=== PATIENT | female | born 1965 | race Caucasian/White ===

== ENCOUNTER 2018-12-01 14:12 | Emergency (ER) | payer SELFPAY ==
[~2018-12-01 14:12] MED LIST: ISOVUE-370 76%-LOCM 1 ML ONE
[2018-12-01 14:44] LABS: Bilirubin Negative (Negative); Blood, Urine Negative (Negative); Clarity CLEAR (Clear); Glucose, Urine (Dipstick) Negative (Negative); Leukocyte Small (Negative); Nitrite Negative (Negative); Protein, Urine (Dipstick) Negative (Neg-Trace); Urobilinogen 0.2 mg/dL (0.2-1.0); pH, Urine 6.5 (5.0-9.0)
[2018-12-01 14:46] LABS: Bacteria/HPF None Seen HPF (None Seen); Hyaline Casts/LPF 0-3 HYALINE CAST LPF (0-3 Hyaline); RBC/HPF 0-3 HPF (0-3); Squamous Epithelial 0-3 HPF (0-3)
[2018-12-01 14:47] LABS: Specific Gravity, Urine 1.004 (1.002-1.036)
[2018-12-01 14:48] LABS: #Basophils 0.1 thou/uL (0.0-0.2); #Lymphocytes 1.7 thou/uL (1.20-3.40); #Monocytes 0.3 thou/uL (0.11-0.59); #Neutrophils 3.1 thou/uL (1.40-6.50); %Eosinophils 0.6 % (0.0-10.0); %Lymphocytes 32.3 % (21.0-51.0); %Monocytes 5.7 % (0.0-10.0); %Neutrophils 60.4 % (42.0-75.0); Hemoglobin 14.3 g/dL (12.0-16.0); Mean Corpuscular HGB CONC 34.4 g/dL (32.0-36.0); Mean Corpuscular Hemoglobin 31.8 pg (27.0-31.0); Mean Corpuscular Volume 92.6 fL (78.0-98.0); Mean Platelet Volume 6.3 fL (7.4-10.4); Platelet Count 263 thou/uL (130-400); RBC Distribution Width 11.4 % (11.5-14.5); White Blood Cell (WBC) Count 5.1 thou/uL (4.8-10.8)
[2018-12-01] MEDS ORDERED: Morphine 4 MG/ML VIAL ONE (15:13)
[2018-12-01 15:19] LABS: ALT (SGPT) 15 U/L (8-55); AST (SGOT) 19 U/L (5-34); Albumin 4.1 g/dL (3.5-5.0); Alkaline Phosphatase 83 U/L (40-150); Anion Gap 16 mmol/L (10-20); BUN (Urea Nitrogen) 9 mg/dL (9.8-20.1); Bilirubin, Total 0.7 mg/dL (0.2-1.2); Calc. Creatinine Clearance 0 mL/min (70-130); Carbon Dioxide 24 mmol/L (22-29); Chloride 104 mmol/L (98-107); Estimated GFR-MDRD 82; Globulin 3.1 g/dL (2.4-3.5); Glucose 96 mg/dL (70-105); Lipase 24 U/L (8-78); Potassium 3.8 mmol/L (3.5-5.1); Protein, Total 7.2 g/dL (6.0-8.3); Sodium 140 mmol/L (136-145)
[2018-12-01] MEDS ORDERED: Ketorolac Tromethamine 30 MG/ML VIAL ONE (16:01)
[2018-12-01] MEDS ORDERED: Ondansetron PF 4 MG/2 ML Vial ONE (16:20)
[2018-12-01] MEDS ORDERED: Dicyclomine 20 MG TAB ONE (16:23)
[2018-12-01] MEDS ORDERED: Lidocaine Viscous Sol 2% 15 ml UD Cup ONE (16:51)
[2018-12-01] MEDS ORDERED: Milk Of Magnesia 30 ML UDCUP ONE (16:51)
[2018-12-01] MEDS ORDERED: Mag-Al 1200 mg/1200 mg/30 ML UDCUP ONE (16:55)
--- NOTE | 2018-12-01 16:55 | CT ---
CT ABDOMEN AND PELVIS WITH IV CONTRAST 12/01/18 Multiple axial tomograms obtained through the abdomen and pelvis with IV enhancement. INDICATIONS: Right upper quadrant abdominal pain and fever. No comparison. Images through the lung bases reveal a 5 mm nodule in the posterior left lung base. This may represen t focal atelectasis; however, followup is recommended. The liver, spleen and pancreas appear unremark able. gallbladder is unremarkable by CT; however, cholesterol gallstones will not be identified on CT and recommend gallbladder ultrasound if there is concern of gallbladder etiology. Adrenal glands and kidneys are unremarkable. Small bowel loops normal. Appendix appears normal. Colon unremarkable. however, mucosal lesions of the colon are not excluded b y CT. No evidence of diverticulitis. Images through the pelvis show unremarkable uterus and adnexa. The urinary bladder appears unremarkab le. No adenopathy. Aorta is normal caliber. IMPRESSION: 1. Questioned nodule left lung base. Followup chest CT is recommended electively. 2. Unremarkable CT abdomen and pelvis. Code LN POS: OSVALDO
== END 2018-12-01 18:05 | disposition home or self-care (01) ==
LOC: ERS 14:12
DX: R10.11 Right upper quadrant pain (principal)
CPT/HCPCS: 36415; 74177; 80053; 81003; 81015; 83690; 85025; 96361; 96374; 96375; J1885; J2270; J2405

== ENCOUNTER 2019-01-17 09:47 | Outpatient (CLI) | payer OTHER ==
[~2019-01-17 09:47] MED LIST changes: -ISOVUE-370 76%-LOCM 1 ML ONE; +Iopamidol 300 61% 100 ML VIAL FS ONE
--- NOTE | 2019-01-17 14:39 | CT ---
CT THORAX WITH IV CONTRAST: 01/17/2019 HISTORY: Left lower lobe pulmonary nodule seen on prior exam. Follow-up evaluation. COMPARISON: CT abdomen on 12/01/2018. FINDINGS: The previously described pulmonary nodule at the left lateral costophrenic angle is again seen and me asures approximately 6 mm, which is overall similar in size, given differences in slight selection. There is a closely adjacent, 3 mm, pleural-based, pulmonary nodule also at the lateral left lung base . A small, pleural-based, 4 mm, pulmonary nodule is seen at the anterior aspect of the right middle lob e. No additional pulmonary nodule or mass is seen, and the lungs are otherwise clear. The mediastinal structures have a normal appearance. There is no evidence of lymphadenopathy. The thoracic aorta is normal in caliber without evidence of an aortic dissection. Minimal vascular c alcifications are seen in the visualized upper abdominal aorta. There is a 10 mm hypodense-appearing nodule just inferior to the left atrium, which is most likely ex trinsic to the left atrium. This is nonspecific and may actually represent volume averaging. The remainder of the visualized upper abdomen has a normal CT appearance. IMPRESSION: Pulmonary nodule, left lateral costophrenic angle, with small, pleural-based, nodular densities in th e lateral left lower lobe and anterior right middle lobe. Follow-up evaluation in six months is malathi mmended. POS: BRIAN
== END 2019-01-17 09:48 | disposition home or self-care (01) ==
LOC: SCSCT 09:47
PROVIDERS: ATTEND Orthopaedic Surgery Sports Medicine
DX: R91.1 Solitary pulmonary nodule (principal); R93.89 Abnormal findings on diagnostic imaging of other specified body structures; J98.4 Other disorders of lung
CPT/HCPCS: 71260; Q9967